=== PATIENT | female | born 1975 | race Caucasian/White ===

== ENCOUNTER → 2016-07-31 | Outpatient (CLI) | payer OTHER ==
--- NOTE | ~2016-07-31 | CR210 ---
[facility] A Service of [facility] RADIOLOGY TEXT RESULTS PATIENT: ELAINE BOWLES LOCATION: [facility] : [birth year] UNIT #: [id number] AGE: [address]: Ortiz Zepeda MD SEX: F ORDER DR: [id number] [place] [id number] MR#: [id number] Acc #: [id number] NAME: ELAINE BOWLES : 1975 SEX: F STUDY DATE/TIME: 07/31/2016 15:35 UNIT: SRAD ROOM: STUDY DESCRIPTION: CR Ribs Uni 2 View W PA Ch Lt Attending Physician: Ortiz Zepeda M.D. Referring Physician: Ortiz Zepeda M.D. Ordering Physician: Ortiz Zepeda M.D. Primary Care Physician: Nava Manjarrez Aprn MEDICAL IMAGING REPORT This report is preliminary unless electronic signature is present. EXAM Frontal chest and left rib series 07/31/2016 INDICATIONS Left-sided flank pain for 3 days. Posterior rib pain on the left. No known injury. TECHNIQUE Frontal chest and 2 views left ribs performed. COMPARISON STUDIES No comparisons FINDINGS Cardiac silhouette is within normal limits. The vascularity is normal. The lungs are clear. No pneumothorax or effusion. No distinct rib fracture. IMPRESSION 1. Negative frontal chest and left rib series. 2. The technologist at [facility] is going to call Dr. Zepeda's office with the results in the case. I have personally spoken with the technologist at [facility]. Dictated by... Anoop Montejo M.D. THIS IS AN ELECTRONICALLY VERIFIED REPORT Anoop Montejo M.D. at 08/01/2016 7:41 AM DOM/lisa [facility] A Service of [facility] RADIOLOGY TEXT RESULTS PATIENT: ELAINE BOWLES LOCATION: [facility] : 73 UNIT #: [id number] AGE: [address]: Ortiz Zepeda MD SEX: F ORDER DR: TD: 07/31/2016 20:07 JOB #: [id number] MEDICAL IMAGING REPORT Page 1 of 1
== END | disposition home or self-care (01) ==
LOC: SRAD 15:30
DX: R07.81 Pleurodynia (principal)
CPT/HCPCS: 71100